=== PATIENT | female | born 1990 | race American Indian/Alaskan Native ===

== ENCOUNTER 2021-04-16 09:01 | Day surgery (SDC) | payer MEDICAID ==
[2021-04-12 10:42] LABS: Hematocrit 35.7 % (30.3-42.9); Mean Corpuscular HGB Conc 34 % (30-34); Mean Corpuscular Volume 85 fl (79-97); Platelet Count 332 K/mm3 (140-440); Red Blood Count 4.19 M/mm3 (3.65-5.03); Red Cell Distribution Width 14.1 % (13.2-15.2)
[~2021-04-16 09:01] MED LIST: LACTATED RINGERS 1,000 ML IV SCH; MIDAZOLAM 2 MG/2 ML INJ IV NR
[2021-04-16] MEDS ORDERED: LIDOCAINE MPF (2%) 20 MG/1 ML VIAL 5 ML ONE (10:00)
[2021-04-16] MEDS ORDERED: ONDANSETRON 4 MG/2 ML INJ ONE (10:00)
[2021-04-16] MEDS ORDERED: KETOROLAC 30 MG/1 ML INJ ONE (10:00)
[2021-04-16] MEDS ORDERED: dexAMETHasone 20 MG/5 ML VIAL ONE (10:00)
[2021-04-16] MEDS ORDERED: BUPIVACAINE/PF (0.5%) 5 MG/1 ML 30 ML VIAL INFILTRATI ONE (10:09)
[2021-04-16] MEDS ORDERED: ONDANSETRON 4 MG/2 ML INJ IV PRN (10:10)
--- NOTE | 2021-04-16 10:10 | Anesthesia Day of Surgery ---
Anesthesia Day of Surgery - Day of Surgery Patient Examined: Yes Patient H&P Reviewed: Yes Patient is NPO: Yes
--- NOTE | 2021-04-16 10:10 | Anesthesia Consultation ---
Anesthesia Consult and Med Hx Date of service: 04/16/21 - Airway Anesthetic Teeth Evaluation: Good ROM Head & Neck: Adequate Mental/Hyoid Distance: Adequate Mallampati Class: Class II Intubation Access Assessment: Probably Good - Pre-Operative Health Status ASA Pre-Surgery Classification: ASA1 Proposed Anesthetic Plan: General - Pulmonary Hx Smoking: No Hx Respiratory Symptoms: No - Cardiovascular System Hx Hypertension: No - Central Nervous System CVA: No - Endocrine Hx Renal Disease: No Hx Liver Disease: No Hx Insulin Dependent Diabetes: No Hx Non-Insulin Dependent Diabetes: No Hx Thyroid Disease: No - Additional Comments Anesthesia Medical History Comments: No hx anesthetic complications.
[2021-04-16] MEDS ORDERED: propofoL 200 MG/20 ML VIAL IV ONE (11:31)
[2021-04-16] MEDS ORDERED: fentaNYL 100 MCG/2 ML INJ ONE (11:31)
[2021-04-16] MEDS ORDERED: POTASSIUM IODIDE/IODINE (LUGOLS) 30 ML TP ONE ×2 (11:46→12:31)
[2021-04-16] MEDS ORDERED: LIDOCAINE 1%/EPINEPHRINE 1:100,000 VIAL (20 ML) INFILTRATI ONE ×2 (11:46→12:30)
[2021-04-16] MEDS ORDERED: FERRIC SUBSULFATE TOPICAL SOLN 8 ML TP ONE ×2 (11:46→12:30)
[2021-04-16] MEDS ORDERED: SODIUM CHLORIDE 0.9% IRR 1,500 ML BOTTLE IR ONE (12:31)
--- NOTE | 2021-04-16 14:24 | Post Anesthesia Evaluation ---
- Post Anesthesia Evaluation Patient Participated: Yes Airway Patent: Yes Stable Respiratory Function: Yes Nausea/Vomiting: No Temp > 96.8F: Yes Pain Manageable: Yes Adequeate Hydration: Yes Anesthesia Complications: No
--- NOTE | 2021-04-16 14:26 | Post Operative Note ---
Date of procedure: 04/16/21 Pre-op diagnosis: High-grade dysplasia Post-op diagnosis: other (Per final pathology) Findings: Grossly normal looking cervix with IUD string coming out of the os. Decreased Lugol's staining was noted from around 10:00 to 12:00. Of note, the IUD string was cut at the level of the external os during the procedure. Procedure: Indication: 30-year-old -2-0-6 with ISAAK-2-3 at 12:00 on colposcopy. Negative ECC. As result patient is here today for her LEEP procedure. Procedure: Patient taken to the operating room and prepped and draped in the usual fashion. Lugol's solution applied to the cervix and a single-tooth tenac ulum applied at lip of the cervix. Attention was turned to applying the lidocaine with epinephrine which was applied at the 2, 4, 8 and 10:00 positions in the cervical stroma. 10 cc total were used. The white loop was then selected with a guard placed about group home up. The LEEP was performed obtaining a posterior and anterior segment. Both were obtained in a single pass without difficulty. Silk stitches were placed at 6:00 and 12:00 on the specimens. Of note, the IUD string was cut during the procedure at the level of the external os. Patient was made aware of this possibility prior to the surgery and understood it. At this point attention was turned to the surrounding ectocervical mucosal edge which was cauterized circumferentially with the rollerball. Attention was then turned to any areas of oozing in the cervical crater which were also cauterized with the rollerball. After this was done, good hemostasis noted throughout. Monsel solution was placed in the cervical crater and the procedure was concluded. Patient tolerated the procedure well. All instrument lap counts were correct. Patient taken to the recovery in stable condition. Anesthesia: GETA Surgeon: SHANTA CHANCE Estimated blood loss: minimal Pathology: list (Anterior segment with stitch at 12:00 and posterior segment with stitch at 6:00) Specimen disposition: to lab Condition: stable Disposition: PACU
--- NOTE | 2021-04-16 14:28 | Short Stay Summary ---
Short Stay Documentation Date of service: 04/16/21 Narrative H&P: Patient presented on 04/16/2021 for her scheduled LEEP procedure for ISAAK-2 to 3 that was normal colposcopy. See H&P and operative report for details. Surgery was uncomplicated except that the IUD string was cut at the level of the external os. Patient instructed to follow-up in the office in 4 weeks with nothing in the vagina until that time. - History H&P: obtained from office - Allergies and Medications Current Medications: Allergies latex Allergy (Verified 04/09/21 16:23) Swelling Penicillins Allergy (Verified 04/09/21 16:23) Swelling Home Medications Medication Instructions Recorded Confirmed Last Taken Type No Known Home Medications [No 04/09/21 04/09/21 Unknown History Reported Home Medications] Active Medications Lactated Ringer's (Lactated Ringers) 1,000 mls @ 100 mls/hr IV DIRECT DAR Stop: 04/16/21 23:59 Last Admin: 04/16/21 10:15 Dose: 100 mls/hr Documented by: Midazolam HCl (Midazolam 2 Mg/2 Ml Inj) 2 mg IV PREOP NR Stop: 04/16/21 23:59 Last Admin: 04/16/21 10:20 Dose: 2 mg Documented by: - Disposition Condition at discharge: Stable Disposition: DC-01 TO HOME OR SELFCARE Short Stay Discharge Plan Additional Instructions: Pelvic rest til seen by MD Sandhu. (No sex no tampons, no douching no tub baths.) Follow up with: SHANTA SANDHU MD [Staff Physician] - 05/17/21
[2021-04-16 17:47] VITALS: BP 112/62
== END 2021-04-16 09:02 | disposition home or self-care (01) ==
LOC: OR 09:01
PROVIDERS: ATTEND Obstetrics & Gynecology
DX: R87.613 High grade squamous intraepithelial lesion on cytologic smear of cervix (HGSIL) (principal); G43.909 Migraine, unspecified, not intractable, without status migrainosus; K21.9 Gastro-esophageal reflux disease without esophagitis; Z90.49 Acquired absence of other specified parts of digestive tract; Z91.040 Latex allergy status; Z88.0 Allergy status to penicillin; Z98.890 Other specified postprocedural states; Z86.2 Personal history of diseases of the blood and blood-forming organs and certain disorders involving the immune mechanism
CPT/HCPCS: 36415; 57522; 84703; 85027; 88307; J1100; J1885; J2250; J2405; J2704; J3010; J7120